=== PATIENT | female | born 1960 | race Caucasian/White ===

== ENCOUNTER 2023-11-10 11:57 | Day surgery (SDC) | payer MEDICARE, OTHER ==
[2023-11-05 10:29] VITALS: BMI 26.1
[~2023-11-10 11:57] MED LIST: SODIUM CHLORIDE 0.9% 1,000 ML IV SCH
[2023-11-10 12:25] VITALS: BP 138/69; PULSE 74; RESP 18; TEMP 98.2
--- NOTE | 2023-11-10 14:45 | P.EPPROC ---
- EP Procedure Note Electrophysiology Procedure Note: Diagnosis Recurrent dizzy spells and near syncope Recurrent palpitations Twelve-lead EKG shows sinus mechanism normal GA narrow QRS normal ST segments Tilt table test for protocol Baseline blood pressure 123/69 mmHg, Baseline heart rate 83 beats a minute Patient was tilted upright at an angle of 70 per protocol After 60 minutes there was a sudden drop in blood pressure. She felt warm and very dizzy and was feeling hot and flushed. 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
[2023-11-10] MEDS ORDERED: CLINDAMYCIN 600 MG in DEXTROSE 5% IN WATER 50 ML IVPB STA ×2 (15:08)
[2023-11-10] MEDS ORDERED: IV FLUID CONTINUATION 250 ML IV ONE (15:14)
[2023-11-10] MEDS ORDERED: LIDOCAINE 1% INJ 10MG/ML (20 ML MDV) SQ ONE (15:36)
--- NOTE | 2023-11-10 15:50 | P.EPPROC ---
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 Zamora Indication: Recurrent palpitations Patient was brought to the EP lab in a fasting state. Written informed consent was obtained prior to the procedure. The left pectoral area was prepped and draped per protocol. Intravenous antibiotic was administered preoperatively. A subcutaneous Loop monitor was implanted successfully and the wound was closed per protocol. The device was programmed to detect significant bala- arrhythmic and tachy-arrhythmic events, per protocol. Device and programming details: Atrial fibrillation/atrial tachycardia detection Patient underwent EP procedure under conscious sedation/moderate sedation, monitoring of the level of consciousness and physiologic parameters including but not limited to vital signs and oxygenation. Patient tolerated the procedure well without any acute complications. Start time: 1535 Stop time: 1541
== END 2023-11-10 16:26 | disposition home or self-care (01) ==
LOC: CATHEP 11:57
PROVIDERS: ATTEND Internal Medicine Clinical Cardiac Electrophysiology
DX: R55 Syncope and collapse (principal); Z91.040 Latex allergy status; Z88.0 Allergy status to penicillin; Z79.899 Other long term (current) drug therapy
CPT/HCPCS: 93660; 33285; C1764; J2001; J0736